=== PATIENT | female | born 1980 | race Caucasian/White ===

== ENCOUNTER 2016-08-16 15:35 | Emergency (ER) | payer OTHER ==
[2016-08-16 16:15] VITALS: BP 146/99
--- NOTE | 2016-08-16 16:20 | EDM.PDOC ---
ED HPI GENERAL MEDICAL PROBLEM - General Chief Complaint: Abdominal Pain Stated Complaint: RLQ ABDOMINAL PAIN Time Seen by Provider: 08/16/16 16:18 Source of Information: Reports: Patient, Family, RN Notes Reviewed History Limitations: Reports: No Limitations - History of Present Illness INITIAL COMMENTS - FREE TEXT/NARRATIVE: 35-year-old female presents emergency department day complaint of abdominal pain she states she has abdominal pain and right lower quadrant sudden onset today with sharp stabbing now has resolved it is more of an achy pain denies any nausea vomiting still passing gas does have an extensive surgical history - Related Data Allergies Allergy/AdvReac Type Severity Reaction Status Date / Time doxycycline Allergy Rash Verified 08/16/16 16:00 Home Meds: Home Meds NK [No Known Home Meds] 08/16/16 [History] Past Medical History 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 Denies: Constipation, Diarrhea, Nausea, Vomiting : Reports: No Symptoms Musculoskeletal: Reports: No Symptoms ED EXAM, GI/ABD - Physical Exam Exam: See Below Text/Narrative:: General: 35-year-old female not in any distress, alert and oriented x3 HEENT: head is atraumatic normocephalic, Lungs: clear to auscultation bilaterally with symmetrical respirations, no adventitious noise appreciated. CV: Regular rate and rhythm S1 and S2 appreciated no murmurs rubs or gallops noted. Abdomen: Soft, mild tenderness appreciated right lower quadrant, no palpable masses or organomegaly appreciated, no distention no guarding bowel sounds are present,. Neuro: Cranial nerves II through XII grossly intact Skin: Warm and dry, intact Extremities: No lower extremity edema appreciated Course - Vital Signs Last Recorded V/S: Last Vital Signs Temp 97.3 F 08/16/16 16:05 Pulse Resp 14 08/16/16 16:05 BP 146/99 H 08/16/16 16:05 Pulse Ox 98 08/16/16 16:05 - Orders/Labs/Meds Orders: Active Orders 24 hr Category Date Time Status Peripheral IV Care [RC] . DIRECTED Care 08/16/16 17:10 Active Abdomen Pelvis w Cont [CT] Stat Exams 08/16/16 17:09 Taken Iopamidol [Isovue-300 (61%)] Med 08/16/16 17:32 Active 123 ml IV . DIRECTED PRN Sodium Chloride 0.9% [Normal Saline] 1,000 ml Med 08/16/16 17:15 Active IV ASDIRECTED Sodium Chloride 0.9% [Normal Saline] 77 ml Med 08/16/16 17:45 Active IV ASDIRECTED Sodium Chloride 0.9% [Saline Flush] Med 08/16/16 17:09 Active 10 ml FLUSH ASDIRECTED PRN Sodium Chloride 0.9% [Saline Flush] Med 08/16/16 17:32 Active 10 ml FLUSH ONETIME PRN Peripheral IV Insertion Adult [OM.PC] Urgent Oth 08/16/16 17:09 Ordered Medication Orders Sodium Chloride (Normal Saline) 1,000 mls @ 500 mls/hr IV ASDIRECTED CHEMO Sodium Chloride (Normal Saline) 77 mls @ 3.5 mls/sec IV ASDIRECTED CHEMO Last Admin: 08/16/16 17:50 Dose: 3 mls/sec Iopamidol (Isovue-300 (61%)) 123 ml IV . DIRECTED PRN PRN Reason: RADIOLOGY EXAM Stop: 08/17/16 17:33 Last Admin: 08/16/16 17:50 Dose: 123 ml Sodium Chloride (Saline Flush) 10 ml FLUSH ASDIRECTED PRN PRN Reason: Keep Vein Open Sodium Chloride (Saline Flush) 10 ml FLUSH ONETIME PRN PRN Reason: per radiology protocol Last Admin: 08/16/16 17:44 Dose: 10 ml Labs: Laboratory Tests 08/16/16 08/16/16 08/16/16 Range/Units 16:29 16:29 16:29 WBC 9.8 (4.5-11.0) K/uL RBC 3.92 (3.30-5.50) M/uL Hgb 13.2 (12.0-15.0) g/dL Hct 39.7 (36.0-48.0) % MCV 101 H (80-98) fL MCH 34 H (27-31) pg MCHC 33 (32-36) % Plt Count 314 (150-400) K/uL Neut % (Auto) 57 (36-66) % Lymph % (Auto) 29 (24-44) % [place] % (Auto) 8 H (2-6) % Eos % (Auto) 4 (2-4) % Baso % (Auto) 1 (0-1) % Sodium 139 L (140-148) mmol/L Potassium 3.7 (3.6-5.2) mmol/L Chloride 103 (100-108) mmol/L Carbon Dioxide 28 (21-32) mmol/L Anion Gap 11.7 (5.0-14.0) mmol/L BUN 10 (7-18) mg/dL Creatinine 0.8 (0.6-1.0) mg/dL Est Cr Clr Drug Dosing 86.37 mL/min Estimated GFR (MDRD) > 60 (>60) Glucose 98 (74-106) mg/dL Lactic Acid 1.4 (0.4-2.0) mmol/L Calcium 9.0 (8.5-10.1) mg/dL Total Bilirubin 0.4 (0.2-1.0) mg/dL AST 26 (15-37) U/L ALT 32 (12-78) U/L Alkaline Phosphatase 82 (46-116) U/L Total Protein 7.8 (6.4-8.2) g/dL Albumin 3.8 (3.4-5.0) g/dL Globulin 4.0 H (2.3-3.5) g/dL Albumin/Globulin Ratio 1.0 L (1.2-2.2) Lipase 120 (73-393) U/L Urine Color Urine Appearance Urine pH (4.5-8.0) Ur Specific [place] (1.008-1.030) Urine Protein (NEGATIVE) mg/dL Urine Glucose (UA) (NEGATIVE) mg/dL Urine Ketones (NEGATIVE) mg/dL Urine Occult Blood (NEGATIVE) Urine Nitrite (NEGATIVE) Urine Bilirubin (NEGATIVE) Urine Urobilinogen (NORMAL) mg/dL Ur Leukocyte Esterase (NEGATIVE) Urine RBC (0-5) Urine WBC (0-5) Ur Epithelial Cells Amorphous Sediment Urine Bacteria Urine Mucus Urine HCG, Qual 07/01/17 07/01/17 Range/Units 16:30 16:30 WBC (4.5-11.0) K/uL RBC (3.30-5.50) M/uL Hgb (12.0-15.0) g/dL Hct (36.0-48.0) % MCV (80-98) fL MCH (27-31) pg MCHC (32-36) % Plt Count (150-400) K/uL Neut % (Auto) (36-66) % Lymph % (Auto) (24-44) % [place] % (Auto) (2-6) % Eos % (Auto) (2-4) % Baso % (Auto) (0-1) % Sodium (140-148) mmol/L Potassium (3.6-5.2) mmol/L Chloride (100-108) mmol/L Carbon Dioxide (21-32) mmol/L Anion Gap (5.0-14.0) mmol/L BUN (7-18) mg/dL Creatinine (0.6-1.0) mg/dL Est Cr Clr Drug Dosing mL/min Estimated GFR (MDRD) (>60) Glucose (74-106) mg/dL Lactic Acid (0.4-2.0) mmol/L Calcium (8.5-10.1) mg/dL Total Bilirubin (0.2-1.0) mg/dL AST (15-37) U/L ALT (12-78) U/L Alkaline Phosphatase (46-116) U/L Total Protein (6.4-8.2) g/dL Albumin (3.4-5.0) g/dL Globulin (2.3-3.5) g/dL Albumin/Globulin Ratio (1.2-2.2) Lipase (73-393) U/L Urine Color Yellow Urine Appearance Clear Urine pH 6.0 (4.5-8.0) Ur Specific [place] 1.010 (1.008-1.030) Urine Protein Negative (NEGATIVE) mg/dL Urine Glucose (UA) Normal (NEGATIVE) mg/dL Urine Ketones Negative (NEGATIVE) mg/dL Urine Occult Blood Negative (NEGATIVE) Urine Nitrite Negative (NEGATIVE) Urine Bilirubin Negative (NEGATIVE) Urine Urobilinogen Normal (NORMAL) mg/dL Ur Leukocyte Esterase Negative (NEGATIVE) Urine RBC 0-5 (0-5) Urine WBC 0-5 (0-5) Ur Epithelial Cells Rare Amorphous Sediment Not seen Urine Bacteria Few Urine Mucus Not seen Urine HCG, Qual Negative Meds: Medications Generic Name Dose Route Start Last Admin Trade Name Awa PRN Reason Stop Dose Admin Sodium Chloride 1,000 mls @ 500 mls/hr 08/16/16 17:15 Normal Saline IV ASDIRECTED CHEMO Sodium Chloride 77 mls @ 3.5 mls/sec 08/16/16 17:45 08/16/16 17:50 Normal Saline IV 3 mls/sec ASDIRECTED CHEMO Administration Iopamidol 123 ml 08/16/16 17:32 08/16/16 17:50 Isovue-300 (61%) IV 08/17/16 17:33 123 ml . DIRECTED PRN Administration RADIOLOGY EXAM Sodium Chloride 10 ml 08/16/16 17:09 Saline Flush FLUSH ASDIRECTED PRN Keep Vein Open Sodium Chloride 10 ml 08/16/16 17:32 08/16/16 17:44 Saline Flush FLUSH 10 ml ONETIME PRN Administration per radiology protocol Departure - Departure Time of Disposition: 19:08 Disposition: Home, Self-Care 01 Condition: Good Clinical Impression: RLQ abdominal pain - Discharge Information Forms: ED Department Discharge Additional Instructions: Use Tylenol and Motrin as needed for pain, please follow-up with your primary care upon return home - My Orders Last 24 Hours: My Active Orders 08/16/16 17:09 Abdomen Pelvis w Cont [CT] Stat Sodium Chloride 0.9% [Saline Flush] 10 ml FLUSH ASDIRECTED PRN Peripheral IV Insertion Adult [OM.PC] Urgent 08/16/16 17:10 Peripheral IV Care [RC] . DIRECTED 08/16/16 17:15 Sodium Chloride 0.9% [Normal Saline] 1,000 ml IV ASDIRECTED 08/16/16 17:32 Iopamidol [Isovue-300 (61%)] 123 ml IV . DIRECTED PRN Sodium Chloride 0.9% [Saline Flush] 10 ml FLUSH ONETIME PRN 08/16/16 17:45 Sodium Chloride 0.9% [Normal Saline] 77 ml IV ASDIRECTED - Assessment/Plan Last 24 Hours: My Active Orders 08/16/16 17:09 Abdomen Pelvis w Cont [CT] Stat Sodium Chloride 0.9% [Saline Flush] 10 ml FLUSH ASDIRECTED PRN Peripheral IV Insertion Adult [OM.PC] Urgent 08/16/16 17:10 Peripheral IV Care [RC] . DIRECTED 08/16/16 17:15 Sodium Chloride 0.9% [Normal Saline] 1,000 ml IV ASDIRECTED 08/16/16 17:32 Iopamidol [Isovue-300 (61%)] 123 ml IV . DIRECTED PRN Sodium Chloride 0.9% [Saline Flush] 10 ml FLUSH ONETIME PRN 08/16/16 17:45 Sodium Chloride 0.9% [Normal Saline] 77 ml IV ASDIRECTED Plan: Assessment Acuity = acute Site and laterality = abdominal pain right lower quadrant Etiology = unclear etiology Manifestations = none Location of injury = Home Lab values = CBC, CMP, urinalysis, CT scan show no acute process Plan I did review lab work and CT scan results with her she declined any pain medication is going to do watchful waiting follow-up with primary care upon return home Patient was in agreement with the plan all questions were answered, they were instructed to return to the emergency department or call for worsening symptoms. This note was dictated using [employer] voice recognition software please call with any questions.
[2016-08-16] MEDS ORDERED: Sodium Chloride 0.9% 10 ML Syringe FLUSH PRN (17:09)
[2016-08-16] MEDS ORDERED: Sodium Chloride 0.9% 1,000 ML IV SCH (17:15)
[2016-08-16] MEDS ORDERED: Iopamidol 612 MG/ML 150 ML Bottle IV PRN (17:32)
[2016-08-16] MEDS: Sodium Chloride 0.9% 10 ML Syringe FLUSH PRN ×2 (17:44→19:23)
== END 2016-08-16 19:25 | disposition home or self-care (01) ==
LOC: JP.ED 15:35
DX: R10.31 Right lower quadrant pain (principal); Z88.1 Allergy status to other antibiotic agents; Z90.49 Acquired absence of other specified parts of digestive tract; Z98.890 Other specified postprocedural states
CPT/HCPCS: 36415; 74177; 80053; 81001; 81025; 83605; 83690; 85025; 96360; 96361; 99284; J7030; J7040; J7050